=== PATIENT | male | born 1940 | race Caucasian/White ===

== ENCOUNTER 2018-04-27 01:24 | Emergency (ER) | payer OTHER ==
--- NOTE | 2018-04-27 02:30 | EDPHY ---
H & P Stated Complaint: FIGURE SKATER TOOK OUT MONACO DUE TO BLOCKAGE Time Seen by Provider: 04/27/18 02:27 HPI/ROS: HPI The patient presents with difficulty urinating. 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 He usually has the catheter changed about every 1-2 months. According to his son Thompson who is his DPOA the patient's catheter stopped draining earlier tonight. This has happened on several occasions before and has been due to buildup of sediment in the bladder. The patient's son removed the catheter. REVIEW OF SYSTEMS 10 systems were reviewed and negative with the exception of the elements mentioned in the history of present illness. PMHx: Prostate cancer, pacemaker, hypertension, dementia Soc Hx: Here with Thompson his son PHYSICAL General Appearance: Alert, no distress Eyes: Pupils equal and round no pallor or injection ENT, Mouth: Mucous membranes moist Respiratory: Breathing comfortably Gastrointestinal: Abdomen is soft and non-tender, no masses, bowel sounds normal Neurological: A&O, moves all extremities Skin: Warm and dry, no rashes Psychiatric: there is no agitation Source: Patient, Family, Other Exam Limitations: No limitations - Personal History Current Tetanus/Diphtheria Vaccine: Yes Current Tetanus Diphtheria and Acellular Pertussis (TDAP): Yes - Medical/Surgical History Hx Asthma: No Hx Chronic Respiratory Disease: No Hx Diabetes: No Hx Cardiac Disease: Yes Hx Renal Disease: No Hx Cirrhosis: No Hx Alcoholism: No Hx HIV/AIDS: No Hx Splenectomy or Spleen Trauma: No Other PMH: PROSTATE CA, PACEMAKER, HTN, DEMINTIA - Social History Smoking Status: Former smoker Constitutional: Initial Vital Signs Temperature (C) 36.7 C 04/27/18 01:36 Heart Rate 72 04/27/18 01:36 Respiratory Rate 18 04/27/18 01:36 Blood Pressure 152/91 H 04/27/18 01:36 O2 Sat (%) 97 04/27/18 01:36 O2 Delivery Mode Room Air Allergies/Adverse Reactions: Sulfa (Sulfonamide Antibiotics) Allergy (Verified 04/27/18 01:40) Home Medications: Medication Instructions Recorded Aspirin [Aspirin 325 mg (*)] 325 mg PO DAILY 04/27/18 Cefuroxime Axetil [Ceftin (*)] 250 mg PO BID 7 Days tab 04/27/18 Finasteride [Proscar 5 MG (*)] 5 mg PO DAILY 04/27/18 Lactobacillus Acidophilus 1 each PO 04/27/18 [Probiotic] Lovastatin 40 mg PO 04/27/18 Medical Decision Making Differential Diagnosis: 77-year-old man with history of urinary retention with chronic indwelling Monaco , history of prostate cancer, presents after catheter became clogged and was removed. I received a call from his primary care doctor Dr. Amelia Wei, she recommends catheter replacement and I believe this will be necessary given his history of ongoing urinary retention. Urinary catheter was replaced without difficulty. Patient will be started on antibiotics. I reviewed his [facility] records and urine culture from last month demonstrating Proteus sensitive to Ceftin. I have prescribed this to him. He will be discharged home. - Data Points Laboratory Results: 04/27/18 02:52 Urine Color YELLOW Urine Appearance MODERATELY TURBID Urine pH 6.0 (5.0-7.5) Ur Specific [place] 1.020 (1.002-1.030) Urine Protein 2+ H (NEGATIVE) Urine Ketones NEGATIVE (NEGATIVE) Urine Blood 3+ H (NEGATIVE) Urine Nitrate POSITIVE H (NEGATIVE) Urine Bilirubin NEGATIVE (NEGATIVE) Urine Urobilinogen NEGATIVE EU EU (0.2-1.0) Ur Leukocyte Esterase 2+ H (NEGATIVE) Urine RBC 50-182 /hpf H /hpf (0-3) Urine WBC 50-182 /hpf H /hpf (0-3) Ur Epithelial Cells NONE SEEN /lpf /lpf (NONE-1+) Urine Bacteria 4+ /hpf H /hpf (NONE SEEN) Urine Glucose NEGATIVE (NEGATIVE) Departure - Departure Disposition: Home, Routine, Self-Care Clinical Impression: Urinary retention Urinary tract infection Qualifiers: Urinary tract infection type: acute cystitis Hematuria presence: without hematuria Qualified Code(s): N30.00 - Acute cystitis without hematuria Condition: Good Instructions: Monaco Catheter Placement and Care (ED) Additional Instructions: Please return to the ER if your worse in any way. Referrals: Amelia Wei MD [Primary Care Provider] - As per Instructions Prescriptions: Cefuroxime Axetil [Ceftin (*)] 250 mg PO BID 7 Days tab
[2018-04-27 03:28] VITALS: BP 141/101
== END 2018-04-27 03:26 | disposition home or self-care (01) ==
PROC: 0T9B70Z Drainage of Bladder with Drainage Device, Via Natural or Artificial Opening (ICD-10-PCS; principal; 2018-04-27)
DX: N30.00 Acute cystitis without hematuria (principal); R33.9 Retention of urine, unspecified

== ENCOUNTER → 2018-05-12 | Outpatient (CLI) | payer OTHER ==
[~2018-05-12] MED LIST: IOPAMIDOL (ISOVUE-300) 100 ML BTL ONE
== END ==
LOC: FIMAGING 15:49
PROVIDERS: ATTEND Physician Assistant Medical
DX: C61 Malignant neoplasm of prostate (principal); N39.0 Urinary tract infection, site not specified; N28.1 Cyst of kidney, acquired
CPT/HCPCS: Q9967

== ENCOUNTER 2018-05-13 11:45 | Emergency (ER) | payer OTHER ==
[2018-05-13] MEDS ORDERED: NS 1,000 ML IV ONE (12:12)
--- NOTE | 2018-05-13 12:14 | EDPHY ---
H & P Smoking Status: Former smoker Time Seen by Provider: 05/13/18 12:12 HPI/ROS: Chief complaint. Syncope HPI. 77-year-old male presents by EMS after having a syncopal episode. He was playing chest and had a staring off into space episode. Unclear whether he completely lost consciousness. Patient has dementia and does not remember. He tells me has no chest pain or shortness of breath. He tells me he feels fine now. He denies fever cough. He tells me no previous syncope however when his son arrives his son says that he has had this frequently especially in situations of stress. Patient had a CT abdomen pelvis yesterday which showed some renal cortical cyst but no kidney stone. He does have a pacemaker. ROS 10 systems were reviewed and negative with the exception of the elements mentioned in the history of present illness (Fabio Lopez) Past Medical/Surgical History: Dementia, prostate cancer, pacemaker, hypertension, carotid endarterectomy, prostate cryotherapy, TURP, alcohol use disorder remotely, CVA, right-sided irina paresis (Fabio Lopez) Social History: Single, nonsmoker, no alcohol (Fabio Lopez) Physical Exam: General Appearance: Alert well-developed male no distress vital signs are stable Eyes: Pupils equal and round no pallor or injection. ENT, Mouth: Mucous membranes are moist. Respiratory: There are no retractions, lungs are clear to auscultation. Cardiovascular: Regular rate and rhythm. Gastrointestinal: Abdomen is soft and nontender, no masses, bowel sounds normal. Neurological: Awake and alert, sensory and motor exams grossly normal. Skin: Warm and dry, no rashes. Musculoskeletal: Neck is supple nontender. Extremities symmetrical, full range of motion. Psychiatric: Patient is oriented X 1, there is no agitation. (Fabio Lopez) Constitutional: Initial Vital Signs Temperature (C) 36.3 C 05/13/18 11:48 Heart Rate 63 05/13/18 11:48 Respiratory Rate 16 05/13/18 11:48 Blood Pressure 123/73 H 05/13/18 11:48 O2 Sat (%) 97 05/13/18 11:48 O2 Delivery Mode Room Air Allergies/Adverse Reactions: Sulfa (Sulfonamide Antibiotics) Allergy (Verified 05/13/18 11:51) Home Medications: Medication Instructions Recorded Aspirin [Aspirin 325 mg (*)] 325 mg PO DAILY 04/27/18 Cefuroxime Axetil [Ceftin (*)] 250 mg PO BID 7 Days tab 04/27/18 Finasteride [Proscar 5 MG (*)] 5 mg PO DAILY 04/27/18 Lactobacillus Acidophilus 1 each PO 04/27/18 [Probiotic] Lovastatin 40 mg PO 04/27/18 Medical Decision Making - Diagnostics EKG Interpretation: EKG interpreted by me shows normal sinus rhythm. Normal interval. Right bundle branch block. QRS otherwise normal. No significant ST elevation or depression. No arrhythmia. Pacer spikes seen. Rate is 60. No previous EKG ( Fabio Lopez) Imaging Results: Noncontrast head CT interpreted by me and discussed with Radiology is normal Chest x-ray interpreted by me is normal (Fabio Lopez) Procedures: IV normal saline, monitor (Fabio Lopez) ED Course/Re-evaluation: Son comes at 12:50 p.m. And tells me that his father has had multiple syncopal and blanking out episodes previously especially when he is over stimulated. Today was his 1st day at [facility] and feels that this was overwhelming for the patient Patient is stable. The son and I discussed imaging and lab results. The son is comfortable taking the patient home if the pacemaker interrogation is fine. We are awaiting the pacer interrogation person (Fabio Lopez) Differential Diagnosis: Patient has dementia and son says he gets overwhelmed and has zone out episodes when placed in stressful situations. This was his 1st day in adult daycare. I have considered intracranial bleeding, CVA, pacemaker malfunction, acute coronary syndrome (Fabio Lopez) Other Provider: I assumed care of this patient to Dr. Fabio Lopez at 3:00 p.m.. His pacemaker was interrogated. Report was presented to me which shows that the battery is working fine. The biochemistry technician increased his ventricular rate. He will be discharged home. (Sabrina Niño) Care Turn Over: Dr. Niño at 1550 (Fabio Lopez) - Data Points Laboratory Results: Laboratory Results 05/13/18 12:00 05/13/18 12:00 Medications Given: Discontinued Medications Sodium Chloride (Ns) 1,000 mls @ 0 mls/hr IV EDNOW ONE; Wide Open PRN Reason: Protocol Stop: 05/13/18 12:13 Last Admin: 05/13/18 13:30 Dose: 1,000 mls Point of Care Test Results: Chemistry 05/13/18 11:54 POC Troponin I 0.01 ng/mL ng/mL (0.00-0.08) Departure - Departure Disposition: Home, Routine, Self-Care Clinical Impression: Syncope Condition: Good Instructions: Syncope (ED) Additional Instructions: Continue regular medications Return for another passing out episode, chest discomfort or trouble breathing Follow-up with regular healthcare Referrals: Ramila Garcia MD [Medical Doctor] - As per Instructions
--- NOTE | 2018-05-13 12:21 | CPEKG ---
Test Reason : OPEN Blood Pressure : / mmHG Vent. Rate : 060 BPM Atrial Rate : 061 BPM P-R Int : 184 ms QRS Dur : 154 ms QT Int : 446 ms P-R-T Axes : 005 230 014 degrees QTc Int : 446 ms Sinus rhythm Right bundle branch block Consider inferior infarct Confirmed by Fabio Lopez ([id number]) on 05/13/2018 12:20:47 PM Referred By: PHYSICIAN ED Confirmed By:Fabio Lopez
[2018-05-13 12:31] LABS: PLATELET COUNT 258 10^3/uL (150-400)
[2018-05-13 16:18] VITALS: BP 129/78
== END 2018-05-13 16:23 | disposition home or self-care (01) ==
LOC: EDUNIT#
DX: R55 Syncope and collapse (principal); E86.9 Volume depletion, unspecified
CPT/HCPCS: 84484-ER

== ENCOUNTER 2018-06-02 02:46 | Emergency (ER) | payer OTHER ==
--- NOTE | 2018-06-02 03:14 | EDPHY ---
H & P Stated Complaint: fever, sob, hx prostate CA with wills Time Seen by Provider: 06/02/18 02:59 HPI/ROS: Chief Complaint: Shortness of breath, felt warm HPI: 77-year-old male with a history of dementia, prostate cancer had an episode this morning where his care provider noted that he seemed to be breathing very short and rapidly while sleeping. His care provider said he felt very warm to the touch. He is concerned about the possibility of a pneumonia or influenza. The patient has had a dry nonproductive cough for the last couple of weeks. Recently completed a course of antibiotics for UTI 4 days ago. No fevers measured at home. No nausea or vomiting. No chest pain. Patient denies shortness of breath at this time. ROS: 10 systems were reviewed and were negative except those elements noted in the HPI. PMH: Dementia, prostate cancer status post TURP, in doing Wills catheter, pacemaker, hypertension, carotid endarterectomy, remote ET 0 H abuse, CVA with right partial irina paresis Social History: No smoking, no alcohol, no recreational drug use Family History: non-contributory Physical Exam: Gen: Awake, Alert, No Distress HEENT: Nose: no rhinorrhea Eyes: PERRLA, EOMI Mouth: Moist mucosa Neck: Supple, no JVD Chest: nontender, lungs clear to auscultation Heart: S1, S2 normal, no murmur Abd: Soft, non-tender, no guarding, Wills catheter in place Back: no CVA tenderness, no midline tenderness Ext: no edema, non-tender Skin: no rash Neuro: CN II-XII intact, Sensation grossly intact, Strength 5/5 in bilateral upper and lower extremities - Personal History Current Tetanus/Diphtheria Vaccine: Unsure Tetanus Vaccine Date: 2017 - Medical/Surgical History Hx Asthma: No Hx Chronic Respiratory Disease: No Hx Diabetes: No Hx Cardiac Disease: Yes Hx Renal Disease: No Hx Cirrhosis: No Hx Alcoholism: No Hx HIV/AIDS: No Hx Splenectomy or Spleen Trauma: No Other PMH: PROSTATE CA, PACEMAKER, HTN, DEMINTIA - Social History Smoking Status: Former smoker Constitutional: Initial Vital Signs Temperature (C) 36.4 C 06/02/18 02:51 Heart Rate 92 06/02/18 02:51 Respiratory Rate 18 06/02/18 02:51 Blood Pressure 151/134 H 06/02/18 02:51 O2 Sat (%) 95 06/02/18 02:51 O2 Delivery Mode Room Air Allergies/Adverse Reactions: Sulfa (Sulfonamide Antibiotics) Allergy (Verified 05/13/18 11:51) Home Medications: Medication Instructions Recorded Aspirin [Aspirin 325 mg (*)] 325 mg PO DAILY 04/27/18 Cefuroxime Axetil [Ceftin (*)] 250 mg PO BID 7 Days tab 04/27/18 Finasteride [Proscar 5 MG (*)] 5 mg PO DAILY 04/27/18 Lactobacillus Acidophilus 1 each PO 04/27/18 [Probiotic] Lovastatin 40 mg PO 04/27/18 Medical Decision Making - Diagnostics Imaging Results: Chest x-ray is negative per my interpretation. ED Course/Re-evaluation: Patient presenting with episode of dyspnea while sleeping and felt warm to his care provider. He is in no distress here. No complaints here. Oxygen saturations are excellent. Lungs are clear. His chest x-ray is negative. Influenza is negative. Will discharge with follow-up as an outpatient, return for any concerns. No evidence of acute infectious process in his respiratory tract at this time. - Data Points Laboratory Results: 06/02/18 03:15 Nasal Influenza A PCR NEGATIVE FOR FLU A (NEGATIVE) Nasal Influenza B PCR NEGATIVE FOR FLU B (NEGATIVE) Departure - Departure Disposition: Home, Routine, Self-Care Clinical Impression: Cough Condition: Good Instructions: Dyspnea (ED) Additional Instructions: Follow up with primary care physician in 2-3 days for further evaluation. Return to the emergency department for worsening shortness of breath, cough, fevers, chills, or any other concerns. Referrals: Patient,NotPresent [Unknown] - As per Instructions
[2018-06-02 04:55] VITALS: BP 149/91
== END 2018-06-02 04:55 | disposition home or self-care (01) ==
DX: R05 Cough (principal); F03.90 Unspecified dementia, unspecified severity, without behavioral disturbance, psychotic disturbance, mood disturbance, and anxiety; I10 Essential (primary) hypertension

== ENCOUNTER 2018-06-02 17:31 | Inpatient (IN) | payer OTHER ==
[2018-06-02] MEDS ORDERED: ERTAPENEM 1 GM in NS 100 ML IV ONE (18:23)
--- NOTE | 2018-06-02 18:28 | EDPHY ---
H & P Stated Complaint: Martinez unable to be flushed, loose stool, increased confusion. Time Seen by Provider: 06/02/18 18:05 HPI/ROS: CHIEF COMPLAINT: Urinary retention and cloudy urine HISTORY OF PRESENT ILLNESS: The patient is a 77-year-old man with history of dementia, prostate cancer post TURP as well as indwelling Martinez catheter. His here early this morning when his caretakers noticed what seemed like chills and a brief episode of breathing rapidly. He told them it felt like a hot flash. He had a chest x-ray and flu swabs that were negative. He was afebrile and not hypoxic and feel comfortable going home. However later this afternoon his son states that his Martinez catheter was not draining. He was able to flush it at home but now the urine is cloudy. He has been treated for the last 3 weeks for urinary tract infections. Was seen here initially and had his Martinez catheter replaced and was started on Ceftin which he took for 7 days. His antibiotics were then continued for an additional 14 days the family thinks with the same antibiotic. He finished those antibiotics 3 days ago and at that time his urine was clear. Now it is cloudy with sediment. The patient had more chills this afternoon but is currently afebrile. He denies chest pain or difficulty breathing. Denies abdominal pain. He is very anxious at baseline. Severity: Moderate Modifying factors: None REVIEW OF SYSTEMS: Constitutional: denies: chills, fever, recent illness, recent injury EENTM: denies: blurred vision, double vision, nose congestion Respiratory: denies: cough, shortness of breath Cardiac: denies: chest pain, irregular heart rate, lightheadedness, palpitations Gastrointestinal/Abdominal: denies: abdominal pain, diarrhea, nausea, vomiting, blood streaked stools Genitourinary: See HPI Musculoskeletal: denies: joint pain, muscle pain Skin: denies: lesions, rash, jaundice, bruising Neurological: denies: headache, numbness, paresthesia, tingling, dizziness, weakness Hematologic/Lymphatic: denies: blood clots, easy bleeding, easy bruising Immunologic/allergic: denies: HIV/AIDS, transplant 10 systems reviewed and negative except as noted EXAM: GENERAL: Well-appearing, well-nourished and in no acute distress. HEAD: Atraumatic, normocephalic. EYES: Pupils equal round and reactive to light, extraocular movements intact, sclera anicteric, conjunctiva are normal. ENT: TMs normal, nares patent, oropharynx clear without exudates. Moist mucous membranes. NECK: Normal range of motion, supple without lymphadenopathy or JVD. LUNGS: Breath sounds clear to auscultation bilaterally and equal. No wheezes rales or rhonchi. HEART: Regular rate and rhythm without murmurs, rubs or gallops. ABDOMEN: Soft, nontender, normoactive bowel sounds. No guarding, no rebound. No masses appreciated. Martinez catheter in place. Minimal amount of leakage. Cloudy purulent appearing urine in the bag and tubing. BACK: No CVA tenderness, no spinal tenderness, step-offs or deformities EXTREMITIES: Normal range of motion, no pitting or edema. No clubbing or cyanosis. NEUROLOGICAL: Cranial nerves II through XII grossly intact. Normal speech, normal gait. 5/5 strength, normal movement in all extremities, normal sensation , normal reflexes PSYCH: Normal mood, normal affect. SKIN: Warm, dry, normal turgor, no visible rashes or lesions. Source: Patient, Family, Old records Exam Limitations: No limitations - Personal History Current Tetanus Diphtheria and Acellular Pertussis (TDAP): Yes Tetanus Vaccine Date: 2017 - Medical/Surgical History Hx Asthma: No Hx Chronic Respiratory Disease: No Hx Diabetes: No Hx Cardiac Disease: Yes Hx Renal Disease: No Hx Cirrhosis: No Hx Alcoholism: No Hx HIV/AIDS: No Hx Splenectomy or Spleen Trauma: No Other PMH: PROSTATE CA, PACEMAKER, HTN, DEMINTIA - Family History Significant Family History: No pertinent family hx - Social History Smoking Status: Former smoker Alcohol Use: None Drug Use: None Constitutional: Initial Vital Signs Temperature (C) 37.1 C 06/02/18 17:36 Heart Rate 91 06/02/18 17:36 Respiratory Rate 18 06/02/18 17:36 Blood Pressure 150/98 H 06/02/18 17:36 O2 Sat (%) 95 06/02/18 17:36 O2 Delivery Mode Room Air Allergies/Adverse Reactions: Sulfa (Sulfonamide Antibiotics) Allergy (Verified 05/13/18 11:51) Home Medications: Medication Instructions Recorded Aspirin [Aspirin 325 mg (*)] 325 mg PO DAILY 04/27/18 Finasteride [Proscar 5 MG (*)] 5 mg PO HS 04/27/18 Lovastatin 40 mg PO HS 04/27/18 Cefuroxime Axetil [Ceftin (*)] 250 mg PO DAILY 06/02/18 Medical Decision Making ED Course/Re-evaluation: 6:30 p.m. I discussed the case with Dr. Chapa in who will admit to the medical service for this patient who is failed outpatient treatment for catheter associated urinary tract infection. We do plan to replace his Martinez catheter. Differential Diagnosis: Partial list of the Differential diagnosis considered include but were not limited to; catheter associated urinary tract infection, sepsis and although unlikely based on the history and physical exam, I also considered abscess, hemorrhage. - Data Points Laboratory Results: Laboratory Results 06/02/18 18:30 06/02/18 18:30 06/02/18 06/02/18 06/02/18 18:30 18:30 18:30 WBC 15.91 10^3/uL H 10^3/uL (3.80-9.50) RBC 4.06 10^6/uL L 10^6/uL (4.40-6.38) Hgb 13.6 g/dL L g/dL (13.7-17.5) Hct 38.8 % L % (40.0-51.0) MCV 95.6 fL fL (81.5-99.8) MCH 33.5 pg pg (27.9-34.1) MCHC 35.1 g/dL g/dL (32.4-36.7) RDW 13.1 % % (11.5-15.2) Plt Count 230 10^3/uL 10^3/uL (150-400) MPV 10.2 fL fL (8.7-11.7) Neut % (Auto) Not Reported Lymph % (Auto) Not Reported [place] % (Auto) Not Reported Eos % (Auto) Not Reported Baso % (Auto) Not Reported Nucleat RBC Rel Count Not Reported Absolute Neuts (auto) Not Reported Absolute Lymphs (auto) Not Reported Absolute Monos (auto) Not Reported Absolute Eos (auto) Not Reported Absolute Basos (auto) Not Reported Absolute Nucleated RBC Not Reported Immature Gran % Not Reported Seg Neutrophils % 94.0 % % Band Neutrophils % 0.0 % % Lymphocytes % 2.0 % % Monocytes % 4.0 % % Eosinophils % 0.0 % % Basophils % 0.0 % % Metamyelocytes % 0.0 % % Myelocytes % 0.0 % % Promyelocytes % 0.0 % % Blast Cells % 0.0 % % Immature Gran # Not Reported Absolute Seg Neuts 14.96 10^3/uL H 10^3/uL (1.70-6.50) Absolute Band Neuts 0.00 10^3/uL 10^3/uL (0.00-0.70) Absolute Lymphocytes 0.32 10^3/uL L 10^3/uL (1.00-3.00) Absolute Monocytes 0.64 10^3/uL 10^3/uL (0.30-0.80) Absolute Eosinophils 0.00 10^3/uL L 10^3/uL (0.03-0.40) Absolute Basophils 0.00 10^3/uL L 10^3/uL (0.02-0.10) Absolute Metamyelocyte 0.00 10^3/mL 10^3/mL (0.00-0.00) Absolute Myelocytes 0.00 10^3/mL 10^3/mL (0.00-0.00) Absolute Promyelocytes 0.00 10^3/uL 10^3/uL (0.00-0.00) Absolute Plasma Cells 0.00 10^3/uL 10^3/uL (0.00-0.00) Nucleated RBCs 0 /100 WBC /100 WBC (0-0) RBC/WBC/PLT Morphology NORMAL (NORMAL) Absolute Blast Cells 0.00 10^3/uL 10^3/uL (0.00-0.00) Plasma Cells % 0.0 % % Platelet Estimate ADEQUATE (ADEQ) PT 14.2 SEC SEC (12.0-15.0) INR 1.15 (0.83-1.16) APTT 43.4 SEC H SEC (23.0-38.0) Sodium 137 mEq/L mEq/L (135-145) Potassium 3.4 mEq/L L mEq/L (3.5-5.2) Chloride 101 mEq/L mEq/L (97-110) Carbon Dioxide 24 mEq/l mEq/l (22-31) Anion Gap 12 mEq/L mEq/L (6-14) BUN 23 mg/dL mg/dL (7-23) Creatinine 1.3 mg/dL mg/dL (0.7-1.3) Estimated GFR 54 Glucose 115 mg/dL H mg/dL (70-100) Calcium 9.2 mg/dL mg/dL (8.5-10.4) Total Bilirubin 0.7 mg/dL mg/dL (0.1-1.4) Medications Given: Sodium Chloride (Ns) 1,000 mls @ 125 mls/hr IV CONT ABRAHAN Stop: 11/29/18 19:29 Last Admin: 06/02/18 21:08 Dose: 1,000 mls Discontinued Medications Ertapenem 1 gm/ Sodium (Chloride) 100 mls @ 200 mls/hr IV EDNOW ONE PRN Reason: Protocol Stop: 06/02/18 18:52 Last Admin: 06/02/18 20:02 Dose: 100 mls Vancomycin HCl 1.25 gm/ Sodium (Chloride) 250 mls @ 166.667 mls/hr IV EDNOW ONE Stop: 06/02/18 20:59 Last Admin: 06/02/18 20:03 Dose: 250 mls Potassium Chloride (Potassium Chloride Oral Liquid) 20 meq PO ONCE ONE Stop: 06/02/18 22:01 Last Admin: 06/02/18 21:39 Dose: 20 meq Departure - Departure Disposition: [facility] ([place], [place]) Inpatient Acute Clinical Impression: Catheter-associated urinary tract infection Qualifiers: Indwelling urinary catheter type: indwelling urethral catheter Encounter type: initial encounter Qualified Code(s): T83.511A - Infection and inflammatory reaction due to indwelling urethral catheter, initial encounter; N39.0 - Urinary tract infection, site not specified; N39.0 - Urinary tract infection, site not specified Condition: Fair
[2018-06-02 18:59] LABS: PLATELET COUNT 230 10^3/uL (150-400)
[2018-06-02 19:07] LABS: INR 1.15 (0.83-1.16); PROTIME(PATIENT) 14.2 SEC (12.0-15.0)
[2018-06-02] MEDS ORDERED: LIDOCAINE 2% JELLY 20 ML (UROJECT) ONE ×2 (19:18→20:05)
[2018-06-02] MEDS ORDERED: HYDROmorphONE/DILAUDID 1 MG/ML INJ IVP PRN (19:18)
[2018-06-02] MEDS ORDERED: ACETAMINOPHEN 325 MG TAB PO PRN (19:18)
[2018-06-02] MEDS ORDERED: oxyCODONE IR 5 MG TAB PO PRN (19:18)
[2018-06-02] MEDS ORDERED: ONDANSETRON 4 MG/2 ML VIAL IVP PRN (19:18)
[2018-06-02] MEDS ORDERED: HYDROCODONE/APAP 5/325 TAB PO PRN (19:18)
[2018-06-02] MEDS ORDERED: PROMETHAZINE HCL 25 MG/ML INJ IVP PRN (19:18)
[2018-06-02] MEDS ORDERED: ONDANSETRON DISINTEGRATING 4 MG TAB PO PRN (19:18)
[2018-06-02] MEDS ORDERED: OLANZapine DISINTEGR 5 MG TAB PO PRN (19:20)
[2018-06-02] MEDS ORDERED: POTASSIUM CL 20 MEQ/15 ML UDCUP PO ONE ×2 (19:20→22:00)
--- NOTE | 2018-06-02 19:25 | PDGENHP ---
History and Physical - Chief Complaint increased confusion, urine cloudy/clogged wills - History of Present Illness 77 yo M with PMH of dementia, prostate cancer and chronic indwelling wills with recurrent infections and recurrent issues with clogging of his catheter who presents with cloudy and dark urine, increased confusion and clogged wills again. Patient is only minimally verbal at the time of my evaluation and therefore the majority of this history is obtained by chart review and from patients son and daughter who are present at bedside. They note that for the last several months at least he has been having increasing issues with recurrent UTI and sediment in his urine that will block his catheter flow. Up until recently he has been a [facility] patient and had his care through them, he has recently switched to [facility] and will be establishing care with a urologist through them this week but has not seen them yet. He was seen here at the end of April for urinary complaints including inability to drain wills, and cloudy/dark urine. He was sent home on a course of ceftin which he completed. Apparently after stopping the ceftin his sxs returned essentially 2 days later, though while abx family reports his urine was completely clear. His PCP Dr. Wei at that time put him on another 2 weeks of abx, family is not sure what abx it was but they think it may have been ceftin still. He completed that 2 days ago and since then the urine went from clear to again cloudy and dark and with significant sediment such that the wills could not drain and despite flushing it was still not clearing. He has also been more confused than usual today, and though he has dementia at baseline he is generally interactive and able to walk around and do some general self care things where today he has not been able to do any of that and has been incontinent of stool even several times which is new for him. History Information - Allergies/Home Medication List Allergies/Adverse Reactions: Sulfa (Sulfonamide Antibiotics) Allergy (Verified 05/13/18 11:51) Home Medications: Aspirin [Aspirin 325 mg (*)] 325 mg PO DAILY 04/27/18 [Last Taken 06/01/18] Finasteride [Proscar 5 MG (*)] 5 mg PO HS 04/27/18 [Last Taken 06/01/18] Lovastatin 40 mg PO HS 04/27/18 [Last Taken 06/01/18] Cefuroxime Axetil [Ceftin (*)] 250 mg PO DAILY 06/02/18 [Last Taken 05/29/18] I have personally reviewed and updated: family history, medical history, social history, surgical history - Past Medical History cancer (prostate), dementia, hyperlipidemia, recurrent UTI Additional medical history: recurrent syncope - Surgical History Reports: cancer surgery, pacemaker/AICD - Family History Positive for: non-pertinent - Social History Smoking Status: Former smoker Alcohol Use: None Drug Use: None Additional social history: lives with his son who is his caregiver and his [facility] Review of Systems Review of Systems: ROS: 10pt was reviewed & negative except for what was stated in HPI & below Physical Exam Physical Exam: Temp Pulse Resp BP Pulse Ox 37.1 C 91 18 150/98 H 95 06/02/18 17:36 06/02/18 17:36 06/02/18 17:36 06/02/18 17:36 06/02/18 17:36 Constitutional: not in pain, chronically ill appearing Eyes: PERRL, anicteric sclera Ears, Nose, Mouth, Throat: poor dentition, dry mucous membranes Cardiovascular: regular rate and rhythym, no murmur, rub, or gallop, No edema Respiratory: no respiratory distress, no rales or rhonchi, clear to auscultation Gastrointestinal: normoactive bowel sounds, soft, non-tender abdomen Genitourinary: wills in urethra Skin: warm, normal color Musculoskeletal: no muscle tenderness, No asymmetric calves Neurologic: CN II-XII Intact, No AAOx3 Psychiatric: encephalopathic Lab Data & Imaging Review 06/02/18 18:30 06/02/18 18:30 WBC 15.91 10^3/uL (3.80-9.50) H 06/02/18 18:30 RBC 4.06 10^6/uL (4.40-6.38) L 06/02/18 18:30 Hgb 13.6 g/dL (13.7-17.5) L 06/02/18 18:30 Hct 38.8 % (40.0-51.0) L 06/02/18 18:30 MCV 95.6 fL (81.5-99.8) 06/02/18 18:30 MCH 33.5 pg (27.9-34.1) 06/02/18 18:30 MCHC 35.1 g/dL (32.4-36.7) 06/02/18 18:30 RDW 13.1 % (11.5-15.2) 06/02/18 18:30 Plt Count 230 10^3/uL (150-400) 06/02/18 18:30 MPV 10.2 fL (8.7-11.7) 06/02/18 18:30 PT 14.2 SEC (12.0-15.0) 06/02/18 18:30 INR 1.15 (0.83-1.16) 06/02/18 18:30 APTT 43.4 SEC (23.0-38.0) H 06/02/18 18:30 VBG Lactic Acid 2.1 mmol/L (0.7-2.1) 06/02/18 18:45 Sodium 137 mEq/L (135-145) 06/02/18 18:30 Potassium 3.4 mEq/L (3.5-5.2) L 06/02/18 18:30 Chloride 101 mEq/L (97-110) 06/02/18 18:30 Carbon Dioxide 24 mEq/l (22-31) 06/02/18 18:30 Anion Gap 12 mEq/L (6-14) 06/02/18 18:30 BUN 23 mg/dL (7-23) 06/02/18 18:30 Creatinine 1.3 mg/dL (0.7-1.3) 06/02/18 18:30 Estimated GFR 54 06/02/18 18:30 Glucose 115 mg/dL (70-100) H 06/02/18 18:30 Calcium 9.2 mg/dL (8.5-10.4) 06/02/18 18:30 Total Bilirubin 0.7 mg/dL (0.1-1.4) 06/02/18 18:30 Visualized and Interpreted Chest x-ray results: Yes Chest X-Ray results: no infiltrate, other (copd) Visualized and Interpreted EKG results: Yes EKG Interpretation: Positive for: right bundle branch block (from 05/13) Assessment & Plan Assessment: Catheter-associated urinary tract infection (Acute) 77 yo M w/hx of dementia, prostate cancer with chronic indwelling wills and recurrent uti admitted with AMS and purulent urine presumed due to CAUTI # CAUTI: patient with reports of recurrent UTI in the setting of chronic indwelling wills and after recently discontinuing antibiotics. Urine is frankly purulent with significant sediment and confusion, wills clogged with sediment as next. Given ertapenem and vancomycin by ER, did course of ceftin as an OP. Most recent cultures with enterococcus and proteus both sensitive to penicillins --will continue tx with zosyn for now pending culture data. Suspect recurrence due to incomplete treatment given resistance patterns noted. ID consulted. # urinary retention: wills clogged with bacteria/sediment/pus on arrival, was changed out in the ER and seems to be draining now, this is a recurrent issue, has f/u with urology scheduled this week--if patient not discharged tomorrow would benefit from IP urology consult # metabolic encephalopathy: with baseline dementia but now noted to have worsening memory issues and weakness in the setting of above, family notes he has been unable to remember things he normally can remember, is increasingly weak, was incontinent of stool today. No focal findings. Zyprexa prn agitation. # recurrent syncope: has not been an issue recently per family, pacer in place that was recently adjusted, family requesting pacer interrogation in am # prostate cancer: s/p turp and with chronic wills now as above, urology appointment scheduled for 06/04 but if still here would need IP eval, they are not sure of the doctors name # dementia: advanced, lives with son who is 24 hour caregiver, now also enrolled in [employer], son is interested in respite for himself # DNR # observation status, may be ready for dc with close f/u in am # Patient new to my care. Old records reviewed and summarized as above. Care plan reviewed with ER doctor, further hx obtained from patients son and daughter present at bedside.
[2018-06-02] MEDS ORDERED: NS 1,000 ML IV SCH (19:30)
[2018-06-02] MEDS ORDERED: VANCOMYCIN 1.25 GM in NS 250 ML IV SCH (19:30)
[2018-06-02] MEDS ORDERED: VANCOMYCIN 1.25 GM in NS 250 ML IV ONE (19:30)
[2018-06-02] MEDS ORDERED: NS 2,100 ML IV ONE (22:26)
[2018-06-03] MEDS: PIPERACILLIN/TAZO 3.375 GM/DEX 50 ML IV SCH ×4 (00:19→17:48)
[2018-06-03 04:06] LABS: PLATELET COUNT 202 10^3/uL (150-400)
[2018-06-03] MEDS: ENOXAPARIN 40 MG/0.4 ML SYR SC SCH (11:15)
[2018-06-03] MEDS ORDERED: ASCORBIC ACID 500 MG TAB PO SCH (11:45)
--- NOTE | 2018-06-03 12:59 | ASMTCMCOM ---
CM Note CM Note Notes: Patient plan of care reviewed in am rounds. 77 year old male who is member of [employer] admitted via ED for urinary obstruction and UTI. Per pace coordinator. Son, Thompson, ([phone]) is requesting respite care as he has been primary care provider for 3 years. Patient also seen by Infectious disease. Likely to discharge tomorrow. Awaiting therapy notes to send with referrals. Plan: DC to SNF when medically appropriate. Date Signed: 06/03/2018 12:56 PM Electronically Signed By:Roseanne Wilder RN
[2018-06-03] MEDS ORDERED: QUEtiapine FUMARATE 25 MG TAB PO PRN (17:03)
--- NOTE | 2018-06-03 17:21 | HOSPPROG ---
Hospitalist Progress Note Assessment/Plan: Catheter-associated urinary tract infection (Acute) 77 yo M w/hx of dementia, prostate cancer with chronic indwelling wills and recurrent uti admitted with AMS and purulent urine presumed due to CAUTI # CAUTI: patient with reports of recurrent UTI in the setting of chronic indwelling wills and after recently discontinuing antibiotics. Urine is frankly purulent with significant sediment and confusion, wills clogged with sediment as next. Given ertapenem and vancomycin by ER, did course of ceftin as an OP. Most recent cultures with enterococcus and proteus both sensitive to penicillins --will continue tx with zosyn for now pending culture data. Suspect recurrence due to incomplete treatment given resistance patterns noted. ID consulted appreciate recs. # urinary retention: wills clogged with bacteria/sediment/pus on arrival, was changed out in the ER and seems to be draining now, this is a recurrent issue, has f/u with urology scheduled this week- will plan for outpatient evaluation. Per ID increased sediment may be 2/2 proteus with urease producing alkalotic urine, recommended starting Vit C for urine acidification, started this AM # metabolic encephalopathy: Improved this AM s/p UTI tx as above # prostate cancer: s/p turp and with chronic wills now as above, urology consult as above # dementia: advanced, lives with son who is 24 hour caregiver, now also enrolled in [employer] [employer], son is interested in respite for himself # DNR Dispo; Pending clinical course Objective: Vital Signs Temp Pulse Resp BP Pulse Ox 36.6 C 68 16 126/76 H 94 06/03/18 16:12 06/03/18 16:12 06/03/18 16:12 06/03/18 16:12 06/03/18 16:12 Laboratory Results 06/03/18 03:52 06/03/18 03:52 06/02/18 06/03/18 06/04/18 05:59 05:59 05:59 Intake Total 1100 550 Output Total 1350 Balance -250 550 PT 14.2 SEC (12.0-15.0) 06/02/18 18:30 INR 1.15 (0.83-1.16) 06/02/18 18:30 ICD10 Worksheet Patient Problems: Problems Problem Status Onset Catheter-associated urinary tract infection Acute
[2018-06-03] MEDS: ASCORBIC ACID 500 MG TAB PO SCH ×2 (17:48→21:06)
--- NOTE | 2018-06-03 20:06 | GCON ---
[f rep st] CONSULTATION INPATIENT INFECTIOUS DISEASE CONSULTATION REFERRING PHYSICIAN: Sana Garcias MD REASON FOR REFERRAL: Recurrent urinary tract issues with positive urine cultures with a chronic Fole y in place. HISTORY OF PRESENT ILLNESS: The patient is a 77-year-old male who presented to [facility] emergency room yesterday evening, 06/02/2018. The patient complained of urinary retention and cl oudy urine. The patient has a history of prostate cancer and is status post transurethral resection of the prostate and he also has a chronic indwelling Martinez catheter. The patient has had a number of episodes lately of urinary tract infections and obstructed Martinez. Last month, the patient was found to have Proteus mirabilis and Enterococcus faecalis within his urine culture. The patient was treat ed with Ceftin orally and did well during his treatment. His family does relate though that the urin e became cloudy and the drainage was more difficult once he completed that treatment course. The pat ient had been experiencing chills at home, but did not show fever. The patient had his Martinez cathete r replaced in the emergency room. Urine samples were taken. The patient was placed empirically on I V Zosyn. He has not had a demonstrated fever since admission. The patient does have a baseline of d ementia. However, his mental status had declined acutely prior to presentation. Currently, he is si tting up and conversant and is more like his baseline level. PAST MEDICAL HISTORY: 1. Prostate cancer. 2. Dementia. 3. Hyperlipidemia. 4. Recurrent urinary tract infection. 5. Recurrent syncope. PAST SURGICAL HISTORY: 1. Status post transurethral resection of prostate. 2. Status post pacemaker and AICD placement. ANTIBIOTICS: Zosyn. ALLERGIES: Patient is allergic to sulfa. SOCIAL HISTORY: Patient is a former smoker. No alcohol or drug use noted. Patient lives with his s on. FAMILY HISTORY: Reviewed but noncontributory. REVIEW OF SYSTEMS: Other than that detailed above in the History of Present Illness, a comprehensive 10-system review is negative. PHYSICAL EXAMINATION: VITAL SIGNS: Temperature maximum is 37.3, temperature current is 36.6. Heart rate is 75, respiratory rate is 16, blood pressure is 127/67. GENERAL: The patient is a well-forme d, well-nourished elderly male in no acute distress. He is not toxic in appearance. He is alert. U nclear to the extent of his orientation. HEENT: Normocephalic for age. Atraumatic. No scleral ict erus. No oral lesion. No drainage from the nares. Eyes: Lids and conjunctivae are within normal l imits. Pupils are equal and round bilaterally. NECK: Supple. No meningismus. LUNGS: Clear to au scultation bilaterally with good effort. HEART: Regular rate and rhythm. No significant murmur, ru b, or gallop noted. No significant peripheral edema. ABDOMEN: Soft, nontender. SKIN: Warm and dr y to touch. No rash or lesion noted. MUSCULOSKELETAL: No muscle tenderness is noted. No joint sonal e effusion or arthritis seen. NEURO: Cranial nerves 2-12 seem to be intact. Peripheral sensation s eems intact as well. LABORATORY DATA: The patient has a CBC dated 06/03/2018 that shows white blood cell count of 11.9, h emoglobin 11.3, hematocrit 32.8, platelet count 202, differential is within normal limits. Serum rodolfo mistries on 06/03/2018, show sodium 138, potassium 3.4, chloride 109, bicarbonate of 23, BUN of 16, c reatinine of 0.9. Urinalysis gathered on 06/02/2018, shows urine pH of 8.0, 2+ protein, 2+ blood, po sitive nitrites, 3+ leukocyte esterase, and 50-182 red blood cells, as well as 50-182 white blood oneal ls per high-power field. MICROBIOLOGIC DATA: Patient has blood cultures dated 06/02/2018, which are pending and a urine cultu re dated 06/02/2018 is also pending. Prior urine culture from 04/27/2018, shows growth of Proteus mi rabilis, as well as enterococcus faecalis. The sensitivities of both of these are fairly sensitive w ith Proteus resistance shown only for nitrofurantoin and tetracycline. Enterococcal resistance only for tetracycline. 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 Proteus secretes urease and breaks down the urea in the urine into ammonia which raises the pH of the urine. This is exemplified in the patient's urinalysis showing pH of 8.0. When the pH is high like this, other mineral such as calcium and magnesium within the urine can precipitate out and crystalize around artificial surfaces quite easily. I suspect this is what is going on with this pa benja. Antibiotic therapy will be temporarily successful, although with a chronic indwelling Martinez c atheter in the bladder, will likely become recolonized. Whether the proteus returns or another bacte jackie is difficult to predict. Another way we could try to reduce the obstruction and accretion of the Martinez catheter would be to acidify the urine with vitamin C. We will start with 500 mg of vitamin C with meals 3 times a day. We will see how much this improves the patient's situation. At this poin t, we can use Zosyn to cover both bacteria seen in the urine culture from last visit until we get new data from present urine culture. We will speak to the adjustment of that antibiotic once this data is available. PLAN: 1. Continue with Zosyn for now. 2. Initiate vitamin C for urine acidification. /[id number]/MODL
[2018-06-03] MEDS ORDERED: PRAVASTATIN SODIUM 40 MG TAB PO SCH (21:00)
[2018-06-03] MEDS ORDERED: FINASTERIDE 5 MG TAB PO SCH (21:00)
[2018-06-04] MEDS: PIPERACILLIN/TAZO 3.375 GM/DEX 50 ML IV SCH ×3 (00:37→11:33)
[2018-06-04] MEDS: ASCORBIC ACID 500 MG TAB PO SCH (09:01)
[2018-06-04] MEDS: ENOXAPARIN 40 MG/0.4 ML SYR SC SCH (09:02)
--- NOTE | 2018-06-04 09:51 | PDMN ---
Medical Necessity Medical necessity: Change to inpt as of 06/03/18 @ 17:38, meets inpt criteria per MD order and MCG M-300, Urinary Tract Infection, a-2 days. 77 y/o w/hx prostate ca and dementia admitted w/recurrent UTI despite completing 2 rounds of outpt abx's in setting of chronic indwelling wills cath w/comorbidity of metabolic encephalopathy r/t UTI, upgraded to inpt for further tx w/IV abx's, trial of Vit C for urine acidification. Urine cultures + for Proteus Mirabilis, ID consult. Est LOS>2MN for ongoing tx of above.
[2018-06-04 11:59] VITALS: BP 127/71
--- NOTE | 2018-06-04 15:12 | ASMTDCNOTE ---
Case Management Discharge Discharge Order Complete? Answers: Yes Patient to Obtain Answers: via Family Medications Transportation Arranged Answers: Family/Friends Faxed Final Orders Answers: Yes Agency/Facility Transfer Answers: Yes Report Printed & Faxed to Receiving Agency Family Notified Answers: Yes Discharge Comments Notes: CM spoke with [facility] Vinnie Blunt who helped coordinate discharge to [facility] and [facility]. Pt's son is advocating for SNF placement. CM spoke with pt's son to discuss transportation plan and he is willing to transport. CM submit discharge orders to [facility]. No other CM needs identified at this time. Date Signed: 06/04/2018 03:11 PM Electronically Signed By:SARAH Prajapati
--- NOTE | 2018-06-04 15:13 | ASDISCHSUM ---
Discharge Information Plan Status:SNF Medically Cleared to Leave: Discharge Date: CM D/C Disposition: ADT D/C Disposition: Projected Discharge Date:06/06/2018 11:00 AM Transportation at D/C: Discharge Delay Reason: Follow-Up Date:06/06/2018 11:00 AM Discharge Slot: Final Diagnosis: Placement Information Referral Type:*Group Home/SNF Referral ID:[id number] Provider Name:[facility] Address 1:[address] Address 2: City:[place] Selection Factors: State:[place] Patient Contact Information Contact Name:MILDRED Relationship:Son Address:[address] Work Phone: [facility] Phone: State/Zip Code:[place] [address] Email: Financial Information Financial Class:HMO and PPO Plans Primary Plan Desc:MASOUD GUZMAN Primary Plan Number:[id number] Secondary Plan Desc: Secondary Plan Number: Assessment Information LACE LACE Length of stay for Answers: Less than 1 day current admission Acuity / Level of Answers: No Care: Did the patient have an inpatient admission? Comorbidities - select Answers: Any tumor (including all that apply lymphoma or leukemia) Dementia Other Notes: HTN; HLD # of Emergency department Answers: 3-4 visits in the last 6 months Score: 9 Date Signed: 06/04/2018 03:12 PM Electronically Signed By:SARAH Prajapati [facility] Progress Note CM Note CM Note Notes: Patient plan of care reviewed in am rounds. 77 year old male who is member of [employer] admitted via ED for urinary obstruction and UTI. Per pace coordinator. Son, Thompson, ([phone]) is requesting respite care as he has been primary care provider for 3 years. Patient also seen by Infectious disease. Likely to discharge tomorrow. Awaiting therapy notes to send with referrals. Plan: DC to SNF when medically appropriate. Date Signed: 06/03/2018 12:56 PM Electronically Signed By:Roseanne Wilder RN Case Management Discharge Plan Note Case Management Discharge Discharge Order Complete? Answers: Yes Patient to Obtain Answers: via Family Medications Transportation Arranged Answers: Family/Friends Faxed Final Orders Answers: Yes Agency/Facility Transfer Answers: Yes Report Printed & Faxed to Receiving Agency Family Notified Answers: Yes Discharge Comments Notes: CM spoke with [facility] Vinnie Blunt who helped coordinate discharge to [facility] and [facility]. Pt's son is advocating for SNF placement. CM spoke with pt's son to discuss transportation plan and he is willing to transport. CM submit discharge orders to [facility]. No other CM needs identified at this time. Date Signed: 06/04/2018 03:11 PM Electronically Signed By:SARAH Prajapati Intervention Information
--- NOTE | 2018-06-04 15:20 | PCMIDPN ---
Assessment/Plan: Assessment: 77-year-old man with acute change in mental status secondary to urinary tract infection caused by a clogged Martinez catheter. He is recovered to near baseline in 24 hr after having Martniez catheter exchanged in addition to treating the Proteus recovered in the urine. As the exchange Martinez catheter was essentially source control will give 4 additional days of Augmentin to finish therapy and continue vitamin C to limit recurrence of crystallization that led to the Martinez catheter obstruction. 1. Acute altered mentation present on admission, improved 2. Catheter associated urinary tract infection, present on admission; nearly resolved largely with Martinez catheter exchange 3. Recurrent urinary tract infection with Proteus mirabilis, improved 4. Acute kidney injury present on admission, resolved 5. Prostate cancer, active and untreated Plan: 1. Stop pip/tazo 2. Start Augmentin 875/125 BID x4 days at discharge 3. ID follow up being arranged to strategize UTI prevention 4. Reviewed in detail potential side effects of beta-lactam antibiotics with patient's hospice home care coordinator to include: allergy, rash, nausea, antibiotic-associated diarrhea, Clostridioides difficile colitis. Reid Peguero MD Infectious Diseases 06/04/18 15:17 Subjective: No documented fever overnight. Patient is sleeping comfortably after a walk with his caregiver. Interval history obtained from caregiver at bedside. He states that the patient has returned nearly to his baseline with increased motor function, increased wakefulness throughout the day, improved cognition. Objective: Vital Signs Temp Pulse Resp BP Pulse Ox 36.7 C 64 18 127/71 H 94 06/04/18 11:56 06/04/18 11:56 06/04/18 11:56 06/04/18 11:56 06/04/18 11:56 06/03/18 06/04/18 06/05/18 05:59 05:59 05:59 Intake Total 50 Output Total 3365 700 Balance -2225 -700 Microbiology 06/02/18 20:15 Urine,Clean Catch Urine Culture - Final Proteus Mirabilis 06/02/18 18:45 Blood Blood Culture - Preliminary 06/02/18 18:30 Blood Blood Culture - Preliminary Laboratory Tests 06/02/18 06/02/18 06/02/18 18:30 18:30 20:15 WBC 15.91 H Creatinine 1.3 Urine WBC 50-182 H Urine Bacteria 4+ H 06/03/18 06/03/18 03:52 03:52 WBC 11.94 H Creatinine 0.9 Urine WBC Urine Bacteria - Physical Exam General Appearance: no apparent distress, non-toxic Respiratory: No respiratory distress, No accessory muscle use Neuro/Psych: other (Patient is sleeping comfortably) ICD10 Worksheet Patient Problems: Problems Problem Status Onset Catheter-associated urinary tract infection Acute
--- NOTE | 2018-06-04 15:49 | PDGENHP ---
History and Physical - History of Present Illness History Information - Allergies/Home Medication List Allergies/Adverse Reactions: Sulfa (Sulfonamide Antibiotics) Allergy (Verified 05/13/18 11:51) Home Medications: Aspirin [Aspirin 325 mg (*)] 325 mg PO DAILY 04/27/18 [Last Taken 06/01/18] Finasteride [Proscar 5 MG (*)] 5 mg PO HS 04/27/18 [Last Taken 06/01/18] Lovastatin 40 mg PO HS 04/27/18 [Last Taken 06/01/18] - Past Medical History cancer (prostate), dementia, hyperlipidemia, recurrent UTI Additional medical history: recurrent syncope - Surgical History Reports: cancer surgery, pacemaker/AICD - Family History Positive for: non-pertinent - Social History Smoking Status: Former smoker Alcohol Use: None Drug Use: None Additional social history: lives with his son who is his caregiver and his MDPOA Review of Systems Review of Systems: Physical Exam Physical Exam: Temp Pulse Resp BP Pulse Ox 36.7 C 64 18 127/71 H 94 06/04/18 11:56 06/04/18 11:56 06/04/18 11:56 06/04/18 11:56 06/04/18 11:56 Lab Data & Imaging Review 06/03/18 03:52 06/03/18 03:52 WBC 11.94 10^3/uL (3.80-9.50) H 06/03/18 03:52 RBC 3.36 10^6/uL (4.40-6.38) L 06/03/18 03:52 Hgb 11.3 g/dL (13.7-17.5) L 06/03/18 03:52 Hct 32.8 % (40.0-51.0) L 06/03/18 03:52 MCV 97.6 fL (81.5-99.8) 06/03/18 03:52 MCH 33.6 pg (27.9-34.1) 06/03/18 03:52 MCHC 34.5 g/dL (32.4-36.7) 06/03/18 03:52 RDW 13.0 % (11.5-15.2) 06/03/18 03:52 Plt Count 202 10^3/uL (150-400) 06/03/18 03:52 MPV 10.1 fL (8.7-11.7) 06/03/18 03:52 Neut % (Auto) 70.4 % (39.3-74.2) 06/03/18 03:52 Lymph % (Auto) 16.2 % (15.0-45.0) 06/03/18 03:52 [place] % (Auto) 12.3 % (4.5-13.0) 06/03/18 03:52 Eos % (Auto) 0.4 % (0.6-7.6) L 06/03/18 03:52 Baso % (Auto) 0.3 % (0.3-1.7) 06/03/18 03:52 Nucleat RBC Rel Count 0.0 % (0.0-0.2) 06/03/18 03:52 Absolute Neuts (auto) 8.40 10^3/uL (1.70-6.50) H 06/03/18 03:52 Absolute Lymphs (auto) 1.93 10^3/uL (1.00-3.00) 06/03/18 03:52 Absolute Monos (auto) 1.47 10^3/uL (0.30-0.80) H 06/03/18 03:52 Absolute Eos (auto) 0.05 10^3/uL (0.03-0.40) 06/03/18 03:52 Absolute Basos (auto) 0.04 10^3/uL (0.02-0.10) 06/03/18 03:52 Absolute Nucleated RBC 0.00 10^3/uL (0-0.01) 06/03/18 03:52 Immature Gran % 0.4 % (0.0-1.1) 06/03/18 03:52 Seg Neutrophils % 94.0 % 06/02/18 18:30 Band Neutrophils % 0.0 % 06/02/18 18:30 Lymphocytes % 2.0 % 06/02/18 18:30 Monocytes % 4.0 % 06/02/18 18:30 Eosinophils % 0.0 % 06/02/18 18:30 Basophils % 0.0 % 06/02/18 18:30 Metamyelocytes % 0.0 % 06/02/18 18:30 Myelocytes % 0.0 % 06/02/18 18:30 Promyelocytes % 0.0 % 06/02/18 18:30 Blast Cells % 0.0 % 06/02/18 18:30 Immature Gran # 0.05 10^3/uL (0.00-0.10) 06/03/18 03:52 Absolute Seg Neuts 14.96 10^3/uL (1.70-6.50) H 06/02/18 18:30 Absolute Band Neuts 0.00 10^3/uL (0.00-0.70) 06/02/18 18:30 Absolute Lymphocytes 0.32 10^3/uL (1.00-3.00) L 06/02/18 18:30 Absolute Monocytes 0.64 10^3/uL (0.30-0.80) 06/02/18 18:30 Absolute Eosinophils 0.00 10^3/uL (0.03-0.40) L 06/02/18 18:30 Absolute Basophils 0.00 10^3/uL (0.02-0.10) L 06/02/18 18:30 Absolute Metamyelocyte 0.00 10^3/mL (0.00-0.00) 06/02/18 18:30 Absolute Myelocytes 0.00 10^3/mL (0.00-0.00) 06/02/18 18:30 Absolute Promyelocytes 0.00 10^3/uL (0.00-0.00) 06/02/18 18:30 Absolute Plasma Cells 0.00 10^3/uL (0.00-0.00) 06/02/18 18:30 Nucleated RBCs 0 /100 WBC (0-0) 06/02/18 18:30 RBC/WBC/PLT Morphology NORMAL (NORMAL) 06/02/18 18:30 Absolute Blast Cells 0.00 10^3/uL (0.00-0.00) 06/02/18 18:30 Plasma Cells % 0.0 % 06/02/18 18:30 Platelet Estimate ADEQUATE (ADEQ) 06/02/18 18:30 PT 14.2 SEC (12.0-15.0) 06/02/18 18:30 INR 1.15 (0.83-1.16) 06/02/18 18:30 APTT 43.4 SEC (23.0-38.0) H 06/02/18 18:30 VBG Lactic Acid 1.9 mmol/L (0.7-2.1) 06/02/18 22:50 Sodium 138 mEq/L (135-145) 06/03/18 03:52 Potassium 3.4 mEq/L (3.5-5.2) L 06/03/18 03:52 Chloride 109 mEq/L (97-110) 06/03/18 03:52 Carbon Dioxide 23 mEq/l (22-31) 06/03/18 03:52 Anion Gap 6 mEq/L (6-14) 06/03/18 03:52 BUN 16 mg/dL (7-23) 06/03/18 03:52 Creatinine 0.9 mg/dL (0.7-1.3) 06/03/18 03:52 Estimated GFR > 60 06/03/18 03:52 Glucose 104 mg/dL (70-100) H 06/03/18 03:52 Calcium 8.2 mg/dL (8.5-10.4) L 06/03/18 03:52 Total Bilirubin 0.7 mg/dL (0.1-1.4) 06/02/18 18:30 Urine Color MARCIAL 06/02/18 20:15 Urine Appearance TURBID 06/02/18 20:15 Urine pH 8.0 (5.0-7.5) H 06/02/18 20:15 Ur Specific [place] 1.016 (1.002-1.030) 06/02/18 20:15 Urine Protein 2+ (NEGATIVE) H 06/02/18 20:15 Urine Ketones NEGATIVE (NEGATIVE) 06/02/18 20:15 Urine Blood 2+ (NEGATIVE) H 06/02/18 20:15 Urine Nitrate POSITIVE (NEGATIVE) H 06/02/18 20:15 Urine Bilirubin NEGATIVE (NEGATIVE) 06/02/18 20:15 Urine Urobilinogen NEGATIVE EU (0.2-1.0) 06/02/18 20:15 Ur Leukocyte Esterase 3+ (NEGATIVE) H 06/02/18 20:15 Urine RBC 50-182 /hpf (0-3) H 06/02/18 20:15 Urine WBC 50-182 /hpf (0-3) H 06/02/18 20:15 Ur Epithelial Cells NONE SEEN /lpf (NONE-1+) 06/02/18 20:15 Urine Bacteria 4+ /hpf (NONE SEEN) H 06/02/18 20:15 Ur Culture Indicated? INDICATED (NI) H 06/02/18 20:15 Urine Glucose NEGATIVE (NEGATIVE) 06/02/18 20:15 Assessment & Plan Assessment: Catheter-associated urinary tract infection (Acute)
--- NOTE | 2018-06-04 16:01 | PDDCSUM ---
Discharge Summary Discharge Summary: Date of Admission: 06/02/2018 Date of Discharge: 06/04/2018 Consults: ID Procedures: Wills exchange Followup: ID, PCP Hospital Course Problem List: 77 yo M w/hx of dementia, prostate cancer with chronic indwelling wills and recurrent uti admitted with AMS and purulent urine presumed due to CAUTI # CAUTI: patient with reports of recurrent UTI in the setting of chronic indwelling wills and after recently discontinuing antibiotics. - Urine frankly purulent with significant sediment and confusion, wills clogged with sediment as next. - Given ertapenem and vancomycin by ER, did course of ceftin as an OP. - Most recent cultures with enterococcus and proteus both sensitive to penicillins--was continued on zosyn urine culture grew Proteus, ID consulted who recommended transitioning to Augmentin 875 mg BID for total 7 day course # urinary retention: wills clogged with bacteria/sediment/pus on arrival, was changed out in the ER and seems to be draining now, this is a recurrent issue, has f/u with urology scheduled this week- will plan for outpatient evaluation. Per ID increased sediment may be 2/2 proteus with urease producing alkalotic urine, recommended starting Vit C for urine acidification # metabolic encephalopathy: Improved s/p UTI tx as above # prostate cancer: s/p turp and with chronic wills now as above, urology f/u as outpatient # dementia: advanced, lives with son who is 24 hour caregiver, now also enrolled in [facility], son is interested in respite for himself Time spent on discharge was >35 minutes with >50% of time spent on patient education and counseling.
[2018-06-04] MEDS ORDERED: AMOXICILLIN/CLAVULANATE POT 875/125 MG TAB PO SCH (21:00)
== END 2018-06-04 15:15 | DRG 698 ==
LOC: F1N 20:37 → OBSVTOIN 06-03 17:38
PROVIDERS: ADMIT Internal Medicine; ATTEND Internal Medicine
DX: T83.511A Infection and inflammatory reaction due to indwelling urethral catheter, initial encounter (principal); G93.41 Metabolic encephalopathy; F03.90 Unspecified dementia, unspecified severity, without behavioral disturbance, psychotic disturbance, mood disturbance, and anxiety; C61 Malignant neoplasm of prostate; R33.9 Retention of urine, unspecified; E78.5 Hyperlipidemia, unspecified; Z66 Do not resuscitate; Z95.810 Presence of automatic (implantable) cardiac defibrillator; Z87.891 Personal history of nicotine dependence
CPT/HCPCS: 96374; 97116-GP; 97162-GP; 97166-GO; 97530-GO; 97530-GP; G0378; J1335; J1650; J2543; J3370

== ENCOUNTER → 2018-06-18 | Outpatient (CLI) | payer OTHER | LOC: FIMAGING 08:54 | PROVIDERS: ATTEND Internal Medicine Geriatric Medicine | DX: C61 Malignant neoplasm of prostate (principal); R33.9 Retention of urine, unspecified | CPT/HCPCS: 78306; A9503 ==

== ENCOUNTER 2018-06-22 21:10 | Emergency (ER) | payer OTHER ==
[2018-06-22 21:15] VITALS: BP 141/100
--- NOTE | 2018-06-22 21:18 | EDPHY ---
H & P Stated Complaint: MONACO CATHETER CLOGGED Time Seen by Provider: 06/22/18 21:17 - Personal History Tetanus Vaccine Date: 2017 - Medical/Surgical History Hx Asthma: No Hx Chronic Respiratory Disease: No Hx Diabetes: No Hx Cardiac Disease: Yes Hx Renal Disease: No Hx Cirrhosis: No Hx Alcoholism: No Hx HIV/AIDS: No Hx Splenectomy or Spleen Trauma: No Other PMH: PROSTATE CA, PACEMAKER, HTN, DEMINTIA, INDWELLING MONACO CATHETER - Social History Smoking Status: Former smoker Constitutional: Initial Vital Signs Temperature (C) 36.7 C 06/22/18 21:13 Heart Rate 82 06/22/18 21:13 Respiratory Rate 16 06/22/18 21:13 Blood Pressure 141/100 H 06/22/18 21:13 O2 Sat (%) 96 06/22/18 21:13 O2 Delivery Mode Room Air Allergies/Adverse Reactions: Sulfa (Sulfonamide Antibiotics) Allergy (Verified 05/13/18 11:51) Home Medications: Medication Instructions Recorded Aspirin [Aspirin 325 mg (*)] 325 mg PO DAILY 04/27/18 Finasteride [Proscar 5 MG (*)] 5 mg PO HS 04/27/18 Lovastatin 40 mg PO HS 04/27/18 Amoxicillin/Clavulanate Pot 875 mg PO BID #9 tab 06/04/18 [Augmentin 875 MG TAB (*)] Ascorbic Acid [Vitamin C 500 mg 500 mg PO TID #90 tab 06/04/18 (*)] Medical Decision Making ED Course/Re-evaluation: CHIEF COMPLAINT: Indwelling catheter problem HISTORY OF PRESENT ILLNESS: The patient is a 77 y/o male with a history of dementia, prostate cancer, and an indwelling Monaco catheter complaining of a clogged indwelling catheter. The patient was on an antibiotic for 7 days for a Proteus mirabilis infection. After stopping the antibiotics the infection returned. The patient recently saw an infectious disease and was given a 30 day round of antibiotics and a high dose of vitamin c. Today the patient's catheter became clogged and his son was unable to de-clog it. No fever, headache, body aches, lightheadedness, chest pain, heart palpitations, shortness of breath, cough, abdominal pain, bowel complaints, numbness, paresthesias. Most of the patient's history was obtained from the patient's son as the patient has dementia. REVIEW OF SYSTEMS: A comprehensive 10 system review of systems is otherwise negative aside from elements mentioned in the history of present illness and medical decision making. PHYSICAL EXAM: HR, BP, O2 Sat, RR. Temp noted General Appearance: Alert, well hydrated, appropriate, and non-toxic appearing. Head: Atraumatic without scalp tenderness or obvious injury Eyes: Pupils equal, round, reactive to light and accommodation, EOMI, no trauma , no injection. Ears: Clear bilaterally, no perforation, normal landmarks Nose: Atraumatic, no rhinorrhea, clear. Throat: There is no erythema or exudates, no lesions, normal tonsils, mucus membranes moist. Neck: Supple, 2+ carotid upstroke, nontender, no lymphadenopathy. Respiratory: No retractions, no distress, no wheezes, and no accessory muscle use. Lungs are clear to auscultation bilaterally. Cardiovascular: Regular rate and rhythm, no murmurs, rubs, or gallops. Bilateral carotid, radial, dorsalis pedis, and posterior tibial pulses intact. Good capillary refill all extremities. Gastrointestinal: Abdomen is soft, nontender, non-distended, no masses, no rebound, no guarding, no peritoneal signs. : Indwelling catheter in place. Musculoskeletal: Normal active ROM of all extremities, atraumatic. Neurological: Alert, appropriate, and interactive. The patient has normal DTRs and non-focal cranial nerves, motor, sensory, and cerebellar exam. Skin: No rashes, good turgor, no nodules on palpation. Past medical history: Proteus mirabilis, prostate cancer, hypertension, dementia , indwelling Monaco catheter Past surgical history: Pacemaker Family history: Denies Social history: Son at bedside, retired, lives in [place] DIAGNOSTICS/PROCEDURES/CRITICAL CARE TIME: Not indicated. DIFFERENTIAL DIAGNOSIS: The differential diagnosis for the patient's urinary retention included but was not limited to indwelling catheter dysfunction, medication side effect, neurologic causes, outflow obstruction including prostatic hypertrophy, and infection. MEDICAL DECISION MAKING: The patient is a 77 y/o male with a history of dementia, prostate cancer, and an indwelling Monaco catheter complaining of a clogged indwelling catheter. The patient was on an antibiotic for 7 days for a Proteus mirabilis infection. After stopping the antibiotics the infection returned. The patient recently saw an infectious disease and was given a 30 day round of antibiotics and a high dose of vitamin c. Today the patient's catheter became clogged and his son was unable to de-clog it. We will change the patient's catheter and advise him to follow up with a urologist. [id number]: Reassessed patient after his catheter was successfully changed. Return precautions provided; patient is comfortable with this plan. Departure - Departure Disposition: Home, Routine, Self-Care Clinical Impression: indwelling monaco catheter dysfunction Monaco catheter problem Qualifiers: Encounter type: initial encounter Qualified Code(s): T83.9XXA - Unspecified complication of genitourinary prosthetic device, implant and graft, initial encounter Condition: Good Instructions: Monaco Catheter Placement and Care (ED) Additional Instructions: 1. Follow up with your urologist in the next week. 2. Return to the Emergency Department for fever, worsening pain, flank pain or failure to improve within 72 hours. Referrals: Amelia Wei MD [Primary Care Provider] - As per Instructions Report Scribed for: Yohan Justice Report Scribed by: Cristina George Date of Report: 06/22/18 Time of Report: 21:20
[2018-06-22] MEDS ORDERED: LIDOCAINE 2% JELLY 20 ML (UROJECT) ONE (21:54)
== END 2018-06-22 22:10 | disposition home or self-care (01) ==
PROC: 0T9B70Z Drainage of Bladder with Drainage Device, Via Natural or Artificial Opening (ICD-10-PCS; principal; 2018-06-22)
DX: T83.018A Breakdown (mechanical) of other urinary catheter, initial encounter (principal); Y73.2 Prosthetic and other implants, materials and accessory gastroenterology and urology devices associated with adverse incidents; Z85.46 Personal history of malignant neoplasm of prostate